=== PATIENT | male | born 1950 | race Caucasian/White ===

== ENCOUNTER 2020-10-18 10:11 | Inpatient (IN) | payer BC, OTHER ==
[~2020-10-18] VITALS: Ht 193 cm; Wt 120.7 kg
[2020-10-18 10:15] VITALS: Ht 193 cm; Wt 120.7 kg
[2020-10-18] MEDS ORDERED: NIACOR500 MG PO (10:44)
[2020-10-18] MEDS ORDERED: FORTAMET500 M1 PO (10:45)
[2020-10-18] MEDS ORDERED: METOPROLOL SUCC25 M2 PO (10:45)
[2020-10-18] MEDS ORDERED: VITAMIN D310 MCG/1 M (10:45)
[2020-10-18] MEDS ORDERED: ALD25 PO (10:46)
[2020-10-18] MEDS ORDERED: ASPIR-TRIN325 MG PO (10:46)
[2020-10-18] MEDS ORDERED: FEXMID7.5 M1 PO (10:46)
[2020-10-18] MEDS ORDERED: KLOR-CON M1010 MEQ PO (10:47)
[2020-10-18] MEDS ORDERED: VITAMIN B12-FO1 EACH PO (10:47)
[2020-10-18] MEDS ORDERED: LEXAPRO10 MG GT (10:47)
[2020-10-18] MEDS ORDERED: ALTOPREV40 M2 PO (10:47)
[2020-10-18] MEDS ORDERED: COLACE100 MG PO (10:48)
[2020-10-18] MEDS ORDERED: TORSEMIDE10 MG PO (10:48)
[2020-10-18] MEDS ORDERED: MAGNESIUM OXID200 MG (10:49)
[2020-10-18] MEDS ORDERED: PROTONIX40 MG/Pac1 PO (10:49)
[2020-10-18 11:21] LABS: BASOPHIL % 0.6 % (0.2-1.5); PLATELET COUNT 263 x10^3mcL (152-348); RED CELL DISTRIBUTION WIDTH 14.3 % (12.1-16.2)
[2020-10-18 11:32] LABS: CARBON DIOXIDE 30.2 mmol/L (21-32); CHLORIDE SERUM 105 mmol/L (98-107); GFR1 > 60 mL/min; GLUCOSE SERUM 127 mg/dL (74-106); POTASSIUM SERUM 4.8 mmol/L (3.5-5.1); SODIUM SERUM 140 mmol/L (136-145)
[2020-10-18 11:40] LABS: ALBUMIN 4.2 g/dL (3.4-5.0); ALKALINE PHOSPHATASE 84 U/L (46-116); ALT/SGPT 49 U/L (16-63); AST/SGOT 28 U/L (15-37); BILIRUBIN TOTAL 0.82 mg/dL (0.20-1.00); TOTAL PROTEIN, SERUM 7.9 g/dL (6.4-8.2)
[2020-10-18 16:17] VITALS: BP 153/85
[2020-10-18 18:41] LABS: MAGNESIUM 2.3 mg/dL (1.8-2.4); PHOSPHOROUS 4.2 mg/dL (2.5-4.9)
[2020-10-18 19:02] LABS: T3 TOTAL 1.33 ng/mL
[2020-10-18 19:09] LABS: FREE T4 0.92 ng/dL (0.76-1.46); FREE THYROXINE INDEX 2.5 ug/dL (1.4-4.5); T4(THYROXINE) 7.6 ug/dL (4.7-13.3)
[2020-10-18 21:08] VITALS: BP 146/83
[2020-10-19 02:00] VITALS: BP 111/64
[2020-10-19 04:51] VITALS: BP 111/64
[2020-10-19 06:55] LABS: BASOPHIL % 1.2 % (0.2-1.5); PLATELET COUNT 227 x10^3mcL (152-348); RED CELL DISTRIBUTION WIDTH 14.4 % (12.1-16.2)
[2020-10-19 07:46] LABS: CALCIUM 8.7 mg/dL (8.5-10.1); CHLORIDE SERUM 104 mmol/L (98-107); GFR1 > 60 mL/min; GLUCOSE SERUM 99 mg/dL (74-106); POTASSIUM SERUM 3.6 mmol/L (3.5-5.1); SODIUM SERUM 141 mmol/L (136-145)
[2020-10-19 08:21] VITALS: BP 118/74
[2020-10-19 12:05] VITALS: BP 129/73
[2020-10-19 17:16] VITALS: BP 144/81
[2020-10-19 20:29] VITALS: BP 117/47
[2020-10-20 04:58] VITALS: BP 127/82
[2020-10-20 07:28] LABS: BASOPHIL % 0.7 % (0.2-1.5); PLATELET COUNT 224 x10^3mcL (152-348); RED CELL DISTRIBUTION WIDTH 14.4 % (12.1-16.2)
[2020-10-20 07:50] LABS: CARBON DIOXIDE 25.5 mmol/L (21-32); CHLORIDE SERUM 103 mmol/L (98-107); GFR1 > 60 mL/min; GLUCOSE SERUM 118 mg/dL (74-106); POTASSIUM SERUM 3.7 mmol/L (3.5-5.1); SODIUM SERUM 137 mmol/L (136-145)
[2020-10-20 08:33] VITALS: BP 125/80
[2020-10-20 12:24] VITALS: BP 142/75
== END 2020-10-20 13:37 | disposition home or self-care (01) | DRG 313 ==
LOC: ED 10:11 → DU 12:21
PROVIDERS: Emergency Medicine; ADMIT Family Medicine; ATTEND Family Medicine
DX: R07.89 Other chest pain (principal); Z20.822 Contact with and (suspected) exposure to COVID-19; I25.10 Atherosclerotic heart disease of native coronary artery without angina pectoris; Z95.1 Presence of aortocoronary bypass graft; Z88.3 Allergy status to other anti-infective agents; Z88.8 Allergy status to other drugs, medicaments and biological substances; J44.9 Chronic obstructive pulmonary disease, unspecified; I10 Essential (primary) hypertension; E11.51 Type 2 diabetes mellitus with diabetic peripheral angiopathy without gangrene; J45.909 Unspecified asthma, uncomplicated; E78.5 Hyperlipidemia, unspecified; F32.9 Major depressive disorder, single episode, unspecified; F43.10 Post-traumatic stress disorder, unspecified; I25.5 Ischemic cardiomyopathy; X58.XXXA Exposure to other specified factors, initial encounter; Y93.89 Activity, other specified; Y92.89 Other specified places as the place of occurrence of the external cause; Y99.8 Other external cause status
CPT/HCPCS: 84439; G0378; J1644; J2270; J2405